=== PATIENT | male | born 1960 | race Caucasian/White ===

== ENCOUNTER → 2021-06-30 | Day surgery (SDC) | payer OTHER ==
[~2021-06-30] VITALS: Ht 170.1 cm; Wt 76.2 kg
[~2021-06-30] MED LIST: AMLODIPINE BESYL5 MG PO; VITAMIN D350 MC2 PO; Zestril,Prinivi40 MG PO
[2021-06-30 07:39] VITALS: BP 123/90
[2021-06-30 09:40] VITALS: BP 128/82
[2021-06-30 09:55] VITALS: BP 125/79
[2021-06-30 10:10] VITALS: BP 125/79
== END | disposition home or self-care (01) ==
LOC: SDC 06-26 09:30
PROVIDERS: ATTEND Surgery
DX: Z12.11 Encounter for screening for malignant neoplasm of colon (principal); D12.5 Benign neoplasm of sigmoid colon; K57.30 Diverticulosis of large intestine without perforation or abscess without bleeding; I10 Essential (primary) hypertension; I73.9 Peripheral vascular disease, unspecified; Z88.0 Allergy status to penicillin; Z79.899 Other long term (current) drug therapy

== ENCOUNTER 2025-02-09 16:51 | Emergency (ER) | payer MEDICARE, MEDICAID ==
[~2025-02-09] VITALS: Wt 77.1 kg
[2025-02-09] MEDS ORDERED: ATORVASTATIN CA40 M1 PO (16:58)
[2025-02-09] MEDS ORDERED: LIPITOR40 MG PO (17:28)
[2025-02-09] MEDS ORDERED: Zestril,Prinivi40 MG PO (17:28)
[2025-02-09] MEDS ORDERED: NORVASC5 MG PO (17:28)
[2025-02-09] MEDS ORDERED: ATORVASTATIN CALCIUM 40 MG TABLET PO ONE (17:35)
[2025-02-09] MEDS ORDERED: LISINOPRIL 40 MG TAB PO ONE (17:35)
[2025-02-09] MEDS ORDERED: LISINOPRIL 20 MG TAB ONE (17:59)
== END 2025-02-09 17:54 | disposition home or self-care (01) ==
LOC: ED 16:51
DX: Z04.89 Encounter for examination and observation for other specified reasons (principal); I10 Essential (primary) hypertension; Z79.899 Other long term (current) drug therapy; Z88.0 Allergy status to penicillin